=== PATIENT | female | born 1950 | race Caucasian/White ===

== ENCOUNTER → 2016-11-01 | Outpatient (CLI) | payer BC ==
[~2016-11-01] MED LIST: ASCO500T16 PO; CHOL100010 PO; LOVA10TA3 PO; LVQ750 PO; MULT-506 PO; TSSP PO; VITACAP37 PO
--- NOTE | 2016-11-01 12:36 | MAMMOGRAPHY REPORT ---
BILATERAL DIGITAL SCREENING MAMMOGRAM WITH CAD: 11/01/2016 CLINICAL HISTORY: Routine screening. Patient has no complaints. TECHNIQUE: Current study was also evaluated with a Computer Aided Detection (CAD) system. Bilatera l CC and MLO views were obtained. COMPARISON: Comparison is made to exams dated: 10/19/2015 mammogram, 10/18/2014 mammogram, 04/20/2014 mammogram, 10/19/2013 mammogram, 10/12/2013 mammogram, and 10/09/2012 mammogram - [facility]. BREAST COMPOSITION: The tissue of both breasts is almost entirely fatty. FINDINGS: No suspicious masses, calcifications, or areas of architectural distortion are noted in e ither breast. There has been no significant interval change compared to prior exams. IMPRESSION: ACR BI-RADS CATEGORY 1: NEGATIVE There is no mammographic evidence of malignancy. A 1 year screening mammogram is recommended. The p atient will receive written notification of the results. Approximately 10% of breast cancers are not detected with mammography. A negative mammographic repor t should not delay biopsy if a clinically suggestive mass is present. Adriana Gaytan M.D. /:11/01/2016 12:27:19 Clinical Staff Educator: Christina Campos, [facility] letter sent: Normal 1/2 BI-RADS Code: ACR BI-RADS Category 1: Negative
--- NOTE | 2016-11-08 14:17 | CODING QUERY MEDICAL NECESSITY ---
SUPPORTING DIAGNOSIS NEEDED A supporting diagnosis is required for the test/procedure performed on this patient in order for us to be reimbursed by the patient's insurance. Please provide a supporting diagnosis for the following test/procedure listed below next to the test name along with your signature. *If there is no additional diagnosis for this patient that would support the following test/procedure please document that below next to the test/procedure. Test(s)/Procedure(s) that require a supporting diagnosis: * DXA BONE DENSITY DIAGNOSIS: * DOS: 11/01/16 Provider Signature: Date: Thank you [facility] Once completed, please kindly fax back to [phone] For questions please call [phone]
== END | disposition home or self-care (01) ==
LOC: C.MAMM 07:44
PROVIDERS: ATTEND Family Medicine
DX: Z12.31 Encounter for screening mammogram for malignant neoplasm of breast (principal); Z12.39 Encounter for other screening for malignant neoplasm of breast; E28.39 Other primary ovarian failure

== ENCOUNTER → 2017-11-04 | Outpatient (CLI) | payer BC ==
--- NOTE | 2017-11-05 07:51 | MAMMOGRAPHY REPORT ---
BILATERAL DIGITAL SCREENING MAMMOGRAM TOMOSYNTHESIS WITH CAD: 11/04/2017 CLINICAL HISTORY: Routine screening. Patient has no complaints. TECHNIQUE: Breast tomosynthesis in addition to standard 2D mammography was performed. Current study was also evaluated with a Computer Aided Detection (CAD) system. COMPARISON: Comparison is made to exams dated: 11/01/2016 mammogram, 10/19/2015 mammogram, 10/18/2014 mammogram, 04/20/2014 mammogram, 10/19/2013 ultrasound, and 10/12/2013 mammogram - [facility]. BREAST COMPOSITION: The tissue of both breasts is almost entirely fatty. FINDINGS: There is stable asymmetry in the inferior left breast and stable nodularity in the lateral right breast. No suspicious mass, architectural distortion or cluster of microcalcifications is seen . IMPRESSION: ACR BI-RADS CATEGORY 1: NEGATIVE There is no mammographic evidence of malignancy. A 1 year screening mammogram is recommended. The pa tient will receive written notification of the results. Approximately 10% of breast cancers are not detected with mammography. A negative mammographic report should not delay biopsy if a clinically suggestive mass is present. Ryanne Salgado M.D. ay/:11/04/2017 16:02:46 Chemistry Instructor: Ceci COKER(Adrienne)(Herbert), [facility] letter sent: Normal 1/2 BI-RADS Code: ACR BI-RADS Category 1: Negative
== END | disposition home or self-care (01) ==
LOC: C.MAMM 07:10
PROVIDERS: ATTEND Family Medicine
DX: Z12.31 Encounter for screening mammogram for malignant neoplasm of breast (principal)

== ENCOUNTER 2024-02-13 06:20 | Inpatient (IN) ==
[2024-02-13] MEDS: dilTIAZem HCl 5 MG/ML 5 ML VIAL IV STA (06:53)
--- NOTE | 2024-02-13 07:11 | XRay Report ---
XR chest 1V portable HISTORY: 73 years-old Female Chest pain, nonspecific COMPARISON: 11/06/2022 TECHNIQUE: AP view of the chest FINDINGS: Cardiomediastinal and hilar silhouettes are within normal limits. No pneumothorax, pleural effusion o r pulmonary edema. Subsegmental left basilar densities. The bones appear grossly intact. IMPRESSION: 1. Cardiomegaly without pulmonary edema. 2. Subsegmental left basilar opacities favor atelectasis. A mild nonspecific pneumonitis considered l ess likely. ACT 112: Negative or not required by law. The above report was generated using voice recognition software. It may contain grammatical, syntax o r spelling errors. Electronically signed by: Dakota June M.D. 02/13/2024 7:10 AM
[2024-02-13 07:21] LABS: Basophils # (auto) 0.02 K/uL (0.00-0.20); Basophils % (auto) 0.2 %; Eosinophils # (auto) 0.06 K/uL (0.00-0.50); Eosinophils % (auto) 0.7 %; Hematocrit (blood only) 45.4 % (37.0-47.0); Hemoglobin 14.9 g/dl (12.0-16.0); Immature Granulocytes # (auto) 0.04 K/uL (0.01-0.20); Immature Granulocytes % (auto) 0.5 %; Lymphocytes # (auto) 1.26 K/uL (1.20-3.40); Mean Corpuscular Hemoglobin 28.4 pg (25.0-34.0); Mean Corpuscular Hgb Conc 32.8 g/dL (32.0-36.0); Mean Corpuscular Volume 86.5 fL (80.0-100.0); Mean Platelet Volume 9.4 fL (9.4-12.4); Monocytes # (auto) 0.84 K/uL (0.11-0.59); Neutrophils # (auto) 6.16 K/uL (1.40-6.50); Neutrophils % (auto) 73.6 %; Platelet Count 242 K/uL (130-400); RDW Coefficient of Variation 13.3 % (11.5-14.5); RDW Standard Deviation 41.3 fL (36.4-46.3); Red Blood Count 5.25 M/uL (4.20-5.40); White Blood Count 8.38 K/ul (4.8-10.8)
[2024-02-13 07:23] LABS: Albumin Globulin Ratio 1.1 (0.9-2); Albumin Level 4.6 gm/dl (3.4-5.0); BUN Creatinine Ratio 15.5 (10-20); Calcium 10.3 mg/dl (8.6-10.3); Creatinine Clr Calc Pharmacy 57.9 ml/min; Est GFR (African American) 67.6 ml/min; Est GFR (Non-African American) 58.3 ml/min; Globulin 4.1 gm/dl (2.5-4.0); Magnesium 2.2 mg/dl (1.7-2.4); Potassium 3.9 mmol/L (3.5-5.1); Total Protein 8.7 gm/dl (6.0-8.3)
[2024-02-13] MEDS: dilTIAZem HCL 125 MG in DEXTROSE 5% 100 ML IV SCH (07:23)
[2024-02-13 07:29] LABS: Troponin I High Sensitivity 5.5 pg/ml (0-14)
--- NOTE | 2024-02-13 07:29 | Emergency Department Note ---
Impression & Plan Atrial fibrillation with rapid ventricular response, Chest pain ED Provider Note NAME: ALEJANDRO BROTHERS AGE: 73 SEX: Female INFORMANT: Patient ED PROVIDER(S): Anup Robles MD CHIEF COMPLAINT: Chest pain PLAN: Disposition: Admitted Outpatient prescription management: none Referral: None MEDICAL DECISION MAKING: Patient presented because of chest pain. A workup was initiated. ECG was performed and showed atrial fibrillation with rapid ventricular response. Patient was placed on monitor. Patient had multiple IVs established. Blood work was obtained. CBC and chemistry panels were unremarkable. Patient's chest x-ray did not show any acute findings. Radiology questioned atelectasis in the left base. Patient has no cough or flulike symptoms. Patient was given a Cardizem bolus, normal saline bolus and started on a Cardizem drip. Rate control was achieved. Care/management discussed with: senior relationship manager Level of care consideration(s): After review of the information above and other included data, I feel the patient requires escalation of care to admission. Triage Nursing notes: reviewed and agree them. Vital Signs: reviewed and remarkable for tachycardia Additional History obtained from: none Chronic Medical/Social Conditions affecting care: Hyperlipidemia Prior/ Outside/ External records reviewed: none Differential Diagnosis: Cardiac ischemia, dysrhythmia, aortic dissection, pulmonary embolism, pneumothorax, pneumonia, pericarditis, myocarditis, esophageal rupture, GERD, cholecystitis, pancreatitis, musculoskeletal, as well as other pathologies. Diagnostics, independently interpreted by me: ECG: Twelve-lead ECG reveals atrial fibrillation with rapid ventricular response at [address] elevation or depression. Nonspecific ST when compared to 06 November 2022 the A-fib is new. Cardiac Monitoring: Cardiac monitoring ordered by me: The patient was placed on continuous cardiac monitoring and observed. It revealed atrial fibrillation with rapid ventricular response at 141 bpm. Medical decision rules: none Imaging studies: Chest x-ray. Findings: A chest x-ray was performed and revealed no pneumothorax, effusion, infiltrate, pulmonary edema, free air under the diaphragm, or wide mediastinum. Atelectasis left base HPI: 73 year old Female arrives for evaluation of chest pain. This started last night and is persisting. Pain radiates down the left arm and into the jaws bilaterally. The patient also notes the following associated symptoms, some shortness of breath and pain with deep breathing.. The patient has taken no medication for relieving factors. Current pain is rated as 8/10. Pt denies LOC, headache, fevers, chills, diaphoresis, visual changes, nausea, vomiting, abdominal pain, back pain, melena, hematochezia, urinary symptoms, numbness, weakness, lymphadenopathy, rash, or other complaints. . PAST MEDICAL HISTORY: See Below, hyperlipidemia PAST SURGICAL HISTORY: See Below, SOCIAL HISTORY: See Below, HOME MEDICATIONS: See Below ALLERGIES: See Below VITALS: See Below PHYSICAL EXAMINATION: GENERAL: Awake, alert, w uncomfortable ell-appearing, in no distress HENT: Normocephalic, atraumatic. Oropharynx unremarkable. EYES: Normal conjunctiva. Sclera non-icteric. NECK: Inspection normal. Non-tender. Supple. No nuchal rigidity. FROM. No masses. RESPIRATORY: Clear to auscultation. No wheezes. No rales. Normal respiratory effort. CARDIAC: Tachycardic rate. Irregular rhythm. No murmurs. No rubs. Extremities warm and well perfused. Pulses equal. No JVD. GI: Soft, non-distended. No tenderness to palpation. No rebound or guarding. No masses. RECTAL: Deferred. MUSCULOSKELETAL: Atraumatic. Chest examination reveals no tenderness. The back is symmetrical on inspection without obvious abnormality. There is no CVA tenderness to palpation. No joint edema. LOWER EXTREMITIES: Calves are equal size bilaterally and non-tender. No edema. No discoloration. NEURO: Normal sensorium. No sensory or motor deficits noted. SKIN: No rash or jaundice noted. PROCEDURES: none CRITICAL CARE: I have personally spent 35 minutes of critical care time in the direct management of this patient. This includes bedside care, interpretation of diagnostic studies, and testing, discussion with consultants, patient, and family members, and other required patient management activities. These minutes are in excess of all separately billable procedures. 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 Beliefs That Will Affect Care: None Current Living Situation: Spouse Other Information That Helps Us Care for You: No Feels Safe at Home: Yes Safety Concerns: Feels Safe At This Time Assistive Devices: Glasses Allergies Allergies Allergy/AdvReac Type Severity Reaction Status Date / Time aspirin Allergy Intermediate Hives Verified 11/06/22 17:00 bee venom protein (honey bee) Allergy Intermediate Hives Verified 11/06/22 17:00 orange Allergy Intermediate Hives Verified 11/06/22 17:00 Egg Derived AdvReac Intermediate NAUSEA/GAS/ Verified 11/06/22 17:00 BLOATING Home Meds Home Medications Medication Instructions Recorded Confirmed ascorbic acid (vitamin C) 500 mg 500 mg PO HS 11/06/22 02/13/24 chewable tablet (Vitamin C) atorvastatin 10 mg tablet 10 mg PO HS 11/06/22 02/13/24 calcium carbonate (Calcium 600) 600 mg PO HS 11/06/22 02/13/24 cholecalciferol (vitamin D3) 25 0 mcg PO HS 11/06/22 02/13/24 mcg (1,000 unit) capsule (Vitamin D3) docusate sodium 100 mg capsule 100 mg PO HS 11/06/22 02/13/24 (Stool Softener) multivitamin 1 tab PO HS 11/06/22 02/13/24 Results & Data (ED) Vital Signs Vital Signs - 24 hr 02/13/24 06:23 02/13/24 06:33 02/13/24 06:35 Temperature 36.3 C L Temperature Source Temporal Artery Scan Pulse Rate 121 H 122 H 130 H Pulse Rate [Right Finger] Pulse Rate from SpO2 Sensor 108 H Respiratory Rate 18 26 H Respiratory Effort / Characteristics Non-Labored Spontaneous Respiratory Depth Normal Blood Pressure 133/82 137/97 Blood Pressure [Right Arm] Blood Pressure Mean 99 110 Blood Pressure Mean [Right Arm] Blood Pressure Position Sitting Blood Pressure Position [Right Arm] Pulse Oximetry 98 95 Oxygen Delivery Method Room Air Room Air Sepsis Recent Fever Within 48 Hours No Sepsis New/Unexplained Change in Mental Status N/A Sepsis Action Taken by Nursing No Action Required 02/13/24 06:37 02/13/24 06:37 02/13/24 06:38 Temperature Temperature Source Pulse Rate Pulse Rate [Right Finger] 120 H Pulse Rate from SpO2 Sensor Respiratory Rate 32 H Respiratory Effort / Characteristics Respiratory Depth Blood Pressure Blood Pressure [Right Arm] 137/97 Blood Pressure Mean Blood Pressure Mean [Right Arm] 110 Blood Pressure Position Blood Pressure Position [Right Arm] Pulse Oximetry 94 94 Oxygen Delivery Method Room Air Room Air Room Air Sepsis Recent Fever Within 48 Hours Sepsis New/Unexplained Change in Mental Status Sepsis Action Taken by Nursing 02/13/24 06:40 02/13/24 06:50 02/13/24 07:22 Temperature Temperature Source Pulse Rate 128 H 118 H Pulse Rate [Right Finger] 114 H Pulse Rate from SpO2 Sensor 109 H 95 H Respiratory Rate 21 27 H 20 Respiratory Effort / Characteristics Non-Labored Respiratory Depth Normal Blood Pressure Blood Pressure [Right Arm] 104/77 Blood Pressure Mean Blood Pressure Mean [Right Arm] 86 Blood Pressure Position Blood Pressure Position [Right Arm] Pulse Oximetry 98 96 95 Oxygen Delivery Method Room Air Room Air Room Air Sepsis Recent Fever Within 48 Hours Sepsis New/Unexplained Change in Mental Status Sepsis Action Taken by Nursing 02/13/24 07:55 02/13/24 07:55 02/13/24 08:23 Temperature Temperature Source Pulse Rate 91 H Pulse Rate [Right Finger] Pulse Rate from SpO2 Sensor 103 H Respiratory Rate 16 Respiratory Effort / Characteristics Respiratory Depth Blood Pressure 101/80 127/85 Blood Pressure [Right Arm] Blood Pressure Mean 85 91 Blood Pressure Mean [Right Arm] Blood Pressure Position Blood Pressure Position [Right Arm] Pulse Oximetry 96 Oxygen Delivery Method Sepsis Recent Fever Within 48 Hours Sepsis New/Unexplained Change in Mental Status Sepsis Action Taken by Nursing 02/13/24 08:23 02/13/24 08:30 02/13/24 08:40 Temperature Temperature Source Pulse Rate 96 H 94 H 98 H Pulse Rate [Right Finger] Pulse Rate from SpO2 Sensor 111 H 94 H 102 H Respiratory Rate 25 H 25 H 18 Respiratory Effort / Characteristics Respiratory Depth Blood Pressure Blood Pressure [Right Arm] Blood Pressure Mean Blood Pressure Mean [Right Arm] Blood Pressure Position Blood Pressure Position [Right Arm] Pulse Oximetry 97 97 97 Oxygen Delivery Method Sepsis Recent Fever Within 48 Hours Sepsis New/Unexplained Change in Mental Status Sepsis Action Taken by Nursing 02/13/24 08:40 02/13/24 08:45 02/13/24 08:45 Temperature Temperature Source Pulse Rate 94 H Pulse Rate [Right Finger] Pulse Rate from SpO2 Sensor 103 H Respiratory Rate 20 Respiratory Effort / Characteristics Respiratory Depth Blood Pressure 119/88 121/98 Blood Pressure [Right Arm] Blood Pressure Mean 92 103 Blood Pressure Mean [Right Arm] Blood Pressure Position Blood Pressure Position [Right Arm] Pulse Oximetry 97 Oxygen Delivery Method Sepsis Recent Fever Within 48 Hours Sepsis New/Unexplained Change in Mental Status Sepsis Action Taken by Nursing 02/13/24 08:50 02/13/24 08:50 02/13/24 08:55 Temperature Temperature Source Pulse Rate 119 H Pulse Rate [Right Finger] Pulse Rate from SpO2 Sensor 97 H Respiratory Rate 19 Respiratory Effort / Characteristics Respiratory Depth Blood Pressure 122/82 119/77 Blood Pressure [Right Arm] Blood Pressure Mean 95 81 Blood Pressure Mean [Right Arm] Blood Pressure Position Blood Pressure Position [Right Arm] Pulse Oximetry 82 L Oxygen Delivery Method Sepsis Recent Fever Within 48 Hours Sepsis New/Unexplained Change in Mental Status Sepsis Action Taken by Nursing 02/13/24 08:55 02/13/24 09:00 02/13/24 09:00 Temperature Temperature Source Pulse Rate 90 Pulse Rate [Right Finger] 101 H Pulse Rate from SpO2 Sensor 97 H Respiratory Rate 20 18 Respiratory Effort / Characteristics Non-Labored Spontaneous Respiratory Depth Normal Blood Pressure 117/83 Blood Pressure [Right Arm] 118/92 Blood Pressure Mean 89 Blood Pressure Mean [Right Arm] 100 Blood Pressure Position Blood Pressure Position [Right Arm] Semi-fowlers Pulse Oximetry 95 97 Oxygen Delivery Method Room Air Sepsis Recent Fever Within 48 Hours Sepsis New/Unexplained Change in Mental Status Sepsis Action Taken by Nursing 02/13/24 09:00 02/13/24 09:06 02/13/24 09:06 Temperature Temperature Source Pulse Rate 93 H 103 H Pulse Rate [Right Finger] Pulse Rate from SpO2 Sensor 93 H 117 H Respiratory Rate 18 18 Respiratory Effort / Characteristics Respiratory Depth Blood Pressure 111/94 Blood Pressure [Right Arm] Blood Pressure Mean 106 Blood Pressure Mean [Right Arm] Blood Pressure Position Blood Pressure Position [Right Arm] Pulse Oximetry 95 97 Oxygen Delivery Method Sepsis Recent Fever Within 48 Hours Sepsis New/Unexplained Change in Mental Status Sepsis Action Taken by Nursing 02/13/24 09:10 02/13/24 09:10 02/13/24 09:15 Temperature Temperature Source Pulse Rate 99 H Pulse Rate [Right Finger] Pulse Rate from SpO2 Sensor 103 H Respiratory Rate 23 Respiratory Effort / Characteristics Respiratory Depth Blood Pressure 118/92 116/88 Blood Pressure [Right Arm] Blood Pressure Mean 95 92 Blood Pressure Mean [Right Arm] Blood Pressure Position Blood Pressure Position [Right Arm] Pulse Oximetry 94 Oxygen Delivery Method Sepsis Recent Fever Within 48 Hours Sepsis New/Unexplained Change in Mental Status Sepsis Action Taken by Nursing 02/13/24 09:15 02/13/24 09:20 02/13/24 09:20 Temperature Temperature Source Pulse Rate 109 H 102 H Pulse Rate [Right Finger] Pulse Rate from SpO2 Sensor 98 H 96 H Respiratory Rate 17 20 Respiratory Effort / Characteristics Respiratory Depth Blood Pressure 104/77 Blood Pressure [Right Arm] Blood Pressure Mean 87 Blood Pressure Mean [Right Arm] Blood Pressure Position Blood Pressure Position [Right Arm] Pulse Oximetry 94 94 Oxygen Delivery Method Sepsis Recent Fever Within 48 Hours Sepsis New/Unexplained Change in Mental Status Sepsis Action Taken by Nursing 02/13/24 09:25 02/13/24 09:25 02/13/24 09:30 Temperature Temperature Source Pulse Rate 94 H 101 H Pulse Rate [Right Finger] Pulse Rate from SpO2 Sensor 99 H 104 H Respiratory Rate 22 22 Respiratory Effort / Characteristics Respiratory Depth Blood Pressure 116/74 Blood Pressure [Right Arm] Blood Pressure Mean 90 Blood Pressure Mean [Right Arm] Blood Pressure Position Blood Pressure Position [Right Arm] Pulse Oximetry 96 95 Oxygen Delivery Method Sepsis Recent Fever Within 48 Hours Sepsis New/Unexplained Change in Mental Status Sepsis Action Taken by Nursing 02/13/24 09:30 02/13/24 09:35 02/13/24 09:35 Temperature Temperature Source Pulse Rate 82 Pulse Rate [Right Finger] Pulse Rate from SpO2 Sensor 86 Respiratory Rate 21 Respiratory Effort / Characteristics Respiratory Depth Blood Pressure 110/80 112/80 Blood Pressure [Right Arm] Blood Pressure Mean 85 81 Blood Pressure Mean [Right Arm] Blood Pressure Position Blood Pressure Position [Right Arm] Pulse Oximetry 94 Oxygen Delivery Method Sepsis Recent Fever Within 48 Hours Sepsis New/Unexplained Change in Mental Status Sepsis Action Taken by Nursing 02/13/24 09:40 02/13/24 09:40 02/13/24 09:45 Temperature Temperature Source Pulse Rate 114 H 95 H Pulse Rate [Right Finger] Pulse Rate from SpO2 Sensor 115 H 86 Respiratory Rate 21 18 Respiratory Effort / Characteristics Respiratory Depth Blood Pressure 102/83 Blood Pressure [Right Arm] Blood Pressure Mean 88 Blood Pressure Mean [Right Arm] Blood Pressure Position Blood Pressure Position [Right Arm] Pulse Oximetry 94 94 Oxygen Delivery Method Sepsis Recent Fever Within 48 Hours Sepsis New/Unexplained Change in Mental Status Sepsis Action Taken by Nursing 02/13/24 09:45 02/13/24 09:50 02/13/24 09:50 Temperature Temperature Source Pulse Rate 129 H Pulse Rate [Right Finger] Pulse Rate from SpO2 Sensor 120 H Respiratory Rate 18 Respiratory Effort / Characteristics Respiratory Depth Blood Pressure 116/78 141/104 H Blood Pressure [Right Arm] Blood Pressure Mean 82 126 Blood Pressure Mean [Right Arm] Blood Pressure Position Blood Pressure Position [Right Arm] Pulse Oximetry 96 Oxygen Delivery Method Sepsis Recent Fever Within 48 Hours Sepsis New/Unexplained Change in Mental Status Sepsis Action Taken by Nursing Laboratory Data 02/13/24 06:40 02/13/24 06:40 Lab Results 02/13/24 Range/Units 06:40 WBC 8.38 (4.8-10.8) K/ul RBC 5.25 (4.20-5.40) M/uL Hgb 14.9 (12.0-16.0) g/dl Hct 45.4 (37.0-47.0) % MCV 86.5 (80.0-100.0) fL MCH 28.4 (25.0-34.0) pg MCHC 32.8 (32.0-36.0) g/dL RDW Std Deviation 41.3 (36.4-46.3) fL RDW Coeff of Radha 13.3 (11.5-14.5) % Plt Count 242 (130-400) K/uL MPV 9.4 (9.4-12.4) fL Immature Gran % (Auto) 0.5 % Neut % (Auto) 73.6 % Lymph % (Auto) 15.0 % [place] % (Auto) 10.0 % Eos % (Auto) 0.7 % Baso % (Auto) 0.2 % Neut # (Auto) 6.16 (1.40-6.50) K/uL Lymph # (Auto) 1.26 (1.20-3.40) K/uL [place] # (Auto) 0.84 H (0.11-0.59) K/uL Eos # (Auto) 0.06 (0.00-0.50) K/uL Baso # (Auto) 0.02 (0.00-0.20) K/uL Immature Gran # (Auto) 0.04 (0.01-0.20) K/uL PT 10.2 (9.0-12.0) Seconds INR 0.9 (0.9-1.1) APTT 28 (21-31) Seconds PTT Ratio 1.0 D-Dimer 780 H* (0-500) ug/L FEU Sodium 139 (136-145) mmol/L Potassium 3.9 (3.5-5.1) mmol/L Chloride 105 (98-107) mmol/L Carbon Dioxide 27 (21-32) mmol/L Anion Gap 7 (3-11) BUN 15 (6-23) mg/dl Creatinine 0.97 (0.6-1.2) mg/dl Est Cr Clr Drug Dosing 57.9 ml/min Est GFR ( Amer) 67.6 ml/min Est GFR (Non-Af Amer) 58.3 ml/min BUN/Creatinine Ratio 15.5 (10-20) Glucose 122 H (70-99(Fasting)) mg/dl Calcium 10.3 (8.6-10.3) mg/dl Magnesium 2.2 (1.7-2.4) mg/dl Total Bilirubin 1.0 (0.2-1.0) mg/dl AST 19 (13-39) U/L ALT 15 (7-52) U/L Alkaline Phosphatase 77 (34-104) U/L Troponin I High Sens 5.5 (0-14) pg/ml Total Protein 8.7 H (6.0-8.3) gm/dl Albumin 4.6 (3.4-5.0) gm/dl Globulin 4.1 H (2.5-4.0) gm/dl Albumin/Globulin Ratio 1.1 (0.9-2) Lipase 19 (11-82) U/L TSH 1.482 (0.300-4.500) uIu/ml Administered Medications Apixaban (Apixaban 5 Mg Tablet) 5 mg PO BID [facility] Stop: 03/14/24 10:14 Last Admin: 02/13/24 11:51 Dose: 5 mg Documented By: JACOB Diltiazem HCl 125 mg/ Dextrose 125 mls @ 2.5 mls/hr IV .Q24H [facility]; Protocol Stop: 03/14/24 06:59 Last Titration: 02/13/24 13:03 Dose: 0 mg/hr, 0 mls/hr Documented By: NINFA Co-signed By: AJAY Admin: 02/13/24 07:23 Dose: 2.5 mg/hr, 2.5 mls/hr Documented By: JACOB Co-signed By: ZOIE Metoprolol Tartrate (Metoprolol Tartrate 25 Mg Tab) 25 mg PO BID [facility] Stop: 03/14/24 10:29 Last Admin: 02/13/24 11:50 Dose: 25 mg Documented By: JACOB Discontinued Medications Diltiazem HCl (Diltiazem Hcl 5 Mg/Ml 5 Ml Vial) 10 mg IV NOW STA Stop: 02/13/24 06:49 Last Admin: 02/13/24 06:53 Dose: 10 mg Documented By: Co-signed By: KG Sodium Chloride (Nss) 500 mls @ 999 mls/hr IV .Q31M ONE Stop: 02/13/24 07:44 Last Infusion: 02/13/24 09:10 Dose: Infused Documented By: Admin: 02/13/24 07:33 Dose: 999 mls/hr Documented By: JACOB Ioversol (Optiray 320 125ml) 112 ml IV ONCE ONE Stop: 02/13/24 08:16 Last Admin: 02/13/24 08:16 Dose: 112 ml Documented By: WEST Imaging Data Radiologist's Impression: Chest X-Ray 02/13/24 06:31 XR chest 1V portable HISTORY: 73 years-old Female Chest pain, nonspecific COMPARISON: 11/06/2022 TECHNIQUE: AP view of the chest FINDINGS: Cardiomediastinal and hilar silhouettes are within normal limits. No pneumothorax, pleural effusion or pulmonary edema. Subsegmental left basilar densities. The bones appear grossly intact. IMPRESSION: 1. Cardiomegaly without pulmonary edema. 2. Subsegmental left basilar opacities favor atelectasis. A mild nonspecific pneumonitis considered less likely. ACT 112: Negative or not required by law. The above report was generated using voice recognition software. It may contain grammatical, syntax or spelling errors. Electronically signed by: Dakota June M.D. 02/13/2024 7:10 AM Chest CTA 02/13/24 07:45 CT angio chest PE protocol CT DOSE: 778.68 mGy.cm HISTORY: 73 years-old Female with chest pain, SOB +dimer, eval PE. Acute chest pain with shortness of breath TECHNIQUE: Multiple CTA images of the chest were obtained after the intravenous administration of 112 ml Optiray. Coronal and sagittal MIPS were obtained from the axial data set and were submitted for review. All measurements were obtained according to NASCET criteria. A dose lowering technique was utilized adhering to the principles of ALARA. COMPARISON: Chest radiograph of same day, chest CT 01/19/2014 FINDINGS: CTA: Moderate cardiomegaly. No pericardial effusion. Minimal coronary artery calcifications. Ectasia of the ascending thoracic aorta measures up to 3.9 cm. No aneurysm or dissection. Patency of the imaged great vessels. Main pulmonary artery measures up to 3.2 cm which may represent underlying pulmonary arterial hypertension. No pulmonary emboli identified. CT CHEST: Unremarkable thyroid. Mildly enlarged mediastinal and hilar lymph nodes measure up to 1.2 cm which are similar to prior and likely benign. No pneumothorax, pleural effusion or overt pulmonary edema. Dependent subsegmental bibasilar atelectasis. Intralobular septal thickening with reticular interstitial opacities of the lung bases. Mild bibasilar mucous plugging. There are a few scattered punctate calcified pulmonary granulomata. No suspicious pulmonary nodules or masses. A few scattered solid noncalcified pulmonary nodules measure up to approximately 3 mm. No acute upper abdominal abnormality. Unremarkable soft tissues. No acute fracture identified. IMPRESSION: 1. Cardiomegaly without pulmonary emboli identified. 2. Bibasilar opacities suggestive of atelectasis versus scarring. 3. No pleural effusion, overt pulmonary edema or airspace consolidation typical for pneumonia. ACT 112: Negative or not required by law. The above report was generated using voice recognition software. It may contain grammatical, syntax or spelling errors. Electronically signed by: Dakota June M.D. 02/13/2024 9:12 AM Discharge Plan Visit Data Chief Complaint: Chest Pain Stated Complaint: CHEST PAIN INTO LEFT ARM,SOB,HEADACHE ED Provider: Anup Robles Discharge Problem: Atrial fibrillation with rapid ventricular response, Chest pain Patient Disposition: Admitted As Inpatient Discharge Instructions Interventions: ED Discharge Assessment Last Done: 02/13/24 13:33
[2024-02-13] MEDS: SODIUM CHLORIDE 0.9% 500 ML IV ONE (07:33)
[2024-02-13 07:40] LABS: D Dimer 780 ug/L FEU (0-500)
[2024-02-13] MEDS: OPTIRAY 320 125ml IV ONE (08:16)
[2024-02-13 08:39] LABS: INR 0.9 (0.9-1.1); Partial Thromboplastin Time 28 Seconds (21-31); Prothrombin Time 10.2 Seconds (9.0-12.0)
--- NOTE | 2024-02-13 09:14 | CT Scan Report ---
CT angio chest PE protocol CT DOSE: 778.68 mGy.cm HISTORY: 73 years-old Female with chest pain, SOB +dimer, eval PE. Acute chest pain with shortness of breath TECHNIQUE: Multiple CTA images of the chest were obtained after the intravenous administration of 112 ml Optiray. Coronal and sagittal MIPS were obtained from the axial data set and were submitted for review. All measurements were obtained according to NASCET criteria. A dose lowering technique was u tilized adhering to the principles of ALARA. COMPARISON: Chest radiograph of same day, chest CT 01/19/2014 FINDINGS: CTA: Moderate cardiomegaly. No pericardial effusion. Minimal coronary artery calcifications. Ectasia of th e ascending thoracic aorta measures up to 3.9 cm. No aneurysm or dissection. Patency of the imaged gr eat vessels. Main pulmonary artery measures up to 3.2 cm which may represent underlying pulmonary art erial hypertension. No pulmonary emboli identified. CT CHEST: Unremarkable thyroid. Mildly enlarged mediastinal and hilar lymph nodes measure up to 1.2 cm which ar e similar to prior and likely benign. No pneumothorax, pleural effusion or overt pulmonary edema. Dep endent subsegmental bibasilar atelectasis. Intralobular septal thickening with reticular interstitial opacities of the lung bases. Mild bibasilar mucous plugging. There are a few scattered punctate calc ified pulmonary granulomata. No suspicious pulmonary nodules or masses. A few scattered solid noncalc ified pulmonary nodules measure up to approximately 3 mm. No acute upper abdominal abnormality. Unremarkable soft tissues. No acute fracture identified. IMPRESSION: 1. Cardiomegaly without pulmonary emboli identified. 2. Bibasilar opacities suggestive of atelectasis versus scarring. 3. No pleural effusion, overt pulmonary edema or airspace consolidation typical for pneumonia. ACT 112: Negative or not required by law. The above report was generated using voice recognition software. It may contain grammatical, syntax o r spelling errors. Electronically signed by: Dakota June M.D. 02/13/2024 9:12 AM
--- NOTE | 2024-02-13 10:21 | History & Physical Report ---
Date of Service February 13, 2024 Assessment & Plan (1) Atrial fibrillation with rapid ventricular response: Plan: new onset PM of 02/11 with chest pressure and chest pain radiating down the left arm. - trop neg, repeat confirms. - elevated ddimer - CTA: no PE, bibasilar opacities suggestive atelectasis versus scarring - Echo pending - TSH WNL - continue Cardizem drip until rates controlled - metoprolol tartrate 25mg BID - Eliquis 5mg BID - K 3.9, Mag 2.2 AM CBC and BMP (2) Hyperlipidemia: Plan: Continue atorvastatin 10mg AM Lipid panel Plan Dispo: admit to PCU Full Code DVT proh: started Eliquis History of Present Illness Primary Care Provider: Karolyn Williamson MD Ms. Murdock is a 73F with a PMH of hyperlipemia who presents to the ED with chest pain and SOB since 10pm last night. She took two tylenol that allowed her to sleep for alittle bit and woke up around 430 with worsening pain that radiated down to the arm that prompted her to come to the ER. Was in her usual state of health until last night. Does report family hx of afib but has never been told she had this before. Shoulder pain has improved, reports chest pain is still 5/10 with deep breathing, but otherwise no pain. Allergies Allergy/AdvReac Type Severity Reaction Status Date / Time aspirin Allergy Intermediate Hives Verified 11/06/22 17:00 bee venom protein (honey bee) Allergy Intermediate Hives Verified 11/06/22 17:00 orange Allergy Intermediate Hives Verified 11/06/22 17:00 Egg Derived AdvReac Intermediate NAUSEA/GAS/ Verified 11/06/22 17:00 BLOATING Home Medications Medication Instructions Recorded Confirmed Type ascorbic acid (vitamin C) 500 mg 500 mg PO HS 11/06/22 02/13/24 History chewable tablet (Vitamin C) atorvastatin 10 mg tablet 10 mg PO HS 11/06/22 02/13/24 History calcium carbonate (Calcium 600) 600 mg PO HS 11/06/22 02/13/24 History cholecalciferol (vitamin D3) 25 0 mcg PO HS 11/06/22 02/13/24 History mcg (1,000 unit) capsule (Vitamin D3) docusate sodium 100 mg capsule 100 mg PO HS 11/06/22 02/13/24 History (Stool Softener) multivitamin 1 tab PO HS 11/06/22 02/13/24 History Past Med/Surg History Social History Smoking Status: Never smoker Hx Alcohol Use: No Hx Substance Use: No Divinity Teacher Required: No Beliefs That Will Affect Care: None Current Living Situation: Spouse Other Information That Helps Us Care for You: No Feels Safe at Home: Yes Safety Concerns: Feels Safe At This Time Assistive Devices: Glasses Review of Systems Review of Systems: All systems reviewed & are unremarkable except as noted in HPI & below Physical Exam Physical Exam: General: NAD, VS as above Resp: normal respiratory effort, lungs clear to auscultation CV: irregular, rates 100s, no murmur, Abd: normal bowel sounds, non tender, no hepatosplenomegaly Extremities: Moves all extremities, no edema Neuro: A&O x3, Skin: intact, no lesions noted Results & Data Results & Data Vital Signs (Past 12 Hours) Vital Signs Temp Pulse Pulse Resp BP BP Pulse Ox 02/13/24 09:00 101 H 18 118/92 97 02/13/24 07:22 114 H 20 104/77 95 02/13/24 06:50 118 H 27 H 96 02/13/24 06:40 128 H 21 98 02/13/24 06:38 120 H 32 H 137/97 94 02/13/24 06:37 02/13/24 06:37 94 02/13/24 06:35 130 H 26 H 137/97 95 02/13/24 06:33 122 H 02/13/24 06:23 36.3 C L 121 H 18 133/82 98 O2 Del Method 02/13/24 09:00 Room Air 02/13/24 07:22 Room Air 02/13/24 06:50 Room Air 02/13/24 06:40 Room Air 02/13/24 06:38 Room Air 02/13/24 06:37 Room Air 02/13/24 06:37 Room Air 02/13/24 06:35 Room Air 02/13/24 06:33 02/13/24 06:23 Room Air Laboratory Results CBC, chemistry, trop, ddimer reviewed Diagnostic Findings CXR and CTA reviewed Supervising Physician Co-Signing Physician Notes Patient seen and examined, chart reviewed, case discussed with Liliya Mcdonnell and I agree with the assessment and plan as above except as otherwise noted Labs and images reviewed Lynne is a 73-year-old female who presents with new A-fib RVR. She has never had A-fib before, but she reports she has multiple family members with A-fib without provoking causes. She denies a history of alcohol use, denies sleep apnea and feels rested in the morning, denies chest pain or exertional angina. She does not have any known thyroid issues, TSH is pending. After admission to the ER she feels improved on the Cardizem drip. She denies any history of heart failure. No leg swelling. CTA does not show evidence of PE. Will attempt to transition to metoprolol. 25mg BID tartrate given, downtitrate cardizem gtt as able and uptitrate mtp if needed. If inadequate rate control with cardizem wean --> +MTP 2.5mg IVP. Discussed afib ppx. At least moderate [id number]. Pt agreeable to afib stroke ppx with eliquis. repeat trop pending, if low suspicion for ACS/trop is not exponentially rising --> eliquis BID. If rising trop or recurrent chest will heparinize for now and target transition when stable. A time of assessment HR 90s-110. BP normal. irir. -mmrg CTAB. No pitting LE edema. Agree with assessment and management above PG Care Time/CCT Total # of Minutes Spent Total Time Spent with Patient: Total time spent is greater than 50% in coordination of care (as documented) at patient's floor/unit and/or counseling patient: Coding Level of Care Code 34246 INT INP/OBS CARE 3/75MIN Diagnoses Atrial fibrillation with rapid ventricular response I48.91 Hyperlipidemia E78.5
[2024-02-13 11:13] LABS: Thyroid Stimulating Hormone 1.482 uIu/ml (0.300-4.500)
[2024-02-13] MEDS: METOPROLOL TARTRATE 25 MG TAB PO SCH (11:50)
[2024-02-13] MEDS: APIXABAN 5 MG TABLET PO SCH (11:51)
[2024-02-13] MEDS ORDERED: POLYETHYLENE (MIRALAX) 17 GM PACK PO PRN (12:50)
[2024-02-13] MEDS ORDERED: ACETAMINOPHEN 325 MG TAB PO PRN (12:50)
--- NOTE | 2024-02-13 15:51 | Electrocardiogram Report ---
Test Reason : Blood Pressure : / mmHG Vent. Rate : 131 BPM Atrial Rate : 000 BPM P-R Int : 000 ms QRS Dur : 070 ms QT Int : 260 ms P-R-T Axes : 000 023 058 degrees QTc Int : 383 ms Atrial fibrillation with rapid ventricular response Abnormal ECG When compared with ECG of 06-NOV-2022 12:46, Atrial fibrillation has replaced Sinus rhythm Nonspecific T wave abnormality now evident in Lateral leads Confirmed by Neal Tolentino ([id number]) on 02/13/2024 3:51:08 PM Referred By: Confirmed By:Neal Tolentino
--- NOTE | 2024-02-13 16:47 | XCELERA ---
[id number]
[2024-02-13] MEDS: ATORVASTATIN 10 MG TAB PO SCH (20:36)
[2024-02-13] MEDS: DOCUSATE SODIUM 100 MG CAP PO SCH (20:36)
[2024-02-13] MEDS: STAT IV Infusion **Titration per Protocol STA (21:45)
[2024-02-14 07:05] LABS: Hematocrit (blood only) 38.4 % (37.0-47.0); Hemoglobin 12.7 g/dl (12.0-16.0); Mean Corpuscular Hemoglobin 28.9 pg (25.0-34.0); Mean Corpuscular Hgb Conc 33.1 g/dL (32.0-36.0); Mean Corpuscular Volume 87.5 fL (80.0-100.0); Mean Platelet Volume 9.1 fL (9.4-12.4); Platelet Count 211 K/uL (130-400); RDW Coefficient of Variation 13.7 % (11.5-14.5); RDW Standard Deviation 43.8 fL (36.4-46.3); Red Blood Count 4.39 M/uL (4.20-5.40); White Blood Count 6.22 K/ul (4.8-10.8)
[2024-02-14 07:07] LABS: Calcium 8.7 mg/dl (8.6-10.3); Magnesium 2.2 mg/dl (1.7-2.4); Potassium 4.1 mmol/L (3.5-5.1)
[2024-02-14 07:13] LABS: BUN Creatinine Ratio 20.8 (10-20); Chol HDL Ratio 2.1 (0-5); Creatinine Clr Calc Pharmacy 56.1 ml/min; Est GFR (African American) 64.4 ml/min; Est GFR (Non-African American) 55.6 ml/min
--- NOTE | 2024-02-14 15:40 | Cardiology Consultation ---
Date of Consultation February 14, 2024 Assessment & Plan (1) Atrial fibrillation with rapid ventricular response: (2) Mitral regurgitation: (3) Hyperlipidemia: (4) Chest pain: Plan Mrs. Murdock is a 73 year old female with a history of Mild Mitral Regurgitation, Mild Coronary Artery Calcifications, Hyperlipidemia, and Interstitial Lung Disease who presented on 02/13/24 with new onset Atrial Fibrillation with RVR. Patient describes new onset chest discomfort which radiated into her left shoulder and left arm beginning at 10:00 p.m. on 02/12/24. She tried to ignore this for a period of time, took some Tylenol and went back to bed. Her discomfort subsequently woke her up in the medical physics researcher hours so she was brought into the emergency room. Workup was initiated. EKG was performed and showed atrial fibrillation with rapid ventricular response. Patient was placed on monitor. Patient had IV access established. Blood work was obtained. CBC showed a normal hemoglobin of 12.7, hematocrit 30.4, normal white blood cell count, and platelet count of [id number]. Metabolic panel showed a normal serum potassium 4.1 mmol/L and her magnesium level was 2.2 mg/dL. Patient's chest x-ray did not show any acute findings. Radiology questioned atelectasis in the left base. Patient was given a Cardizem bolus and a normal saline bolus and started on a Cardizem drip. Rate control was achieved. She was normotensive on presentation and throughout the day on 02/13/24, last night during usual sleeping hours her BP were in the 90's systolically. Her current BP is 102/69. Her high sensitivity troponin I was 5.7 pg/mL and went to 5.9 pg/mL taking TSH normal at 1.482 uIu/mL. Patient is currently sitting in bedside chair and her is in the room with her. She denies any chest pain, heaviness, tightness, pressure, or discomfort. She has not had any further left arm or shoulder discomfort. Her breathing is at baseline. She did not have any sensation of palpitations, heart racing, or tachy palpitations at any time despite the presence of atrial fibrillation. She remains in A-Fib with a controlled V-rate in the 70's and 80's. Her Cardizem drip is currently on hold due to borderline BP readings. She is maintained on Lopressor 25 mg b.i.d. and Eliquis 5 mg b.i.d.. We had a long discussion regarding what Atril Fibrillation is, the natural history of atrial arrhythmias, and various management strategies. We discussed the importance of long-term anticoagulation. Her [id number] is 3 based on sex, age, and coronary artery calcifications. Despite her chest and arm discomfort with rapid A-Fib - I have reassured her that she passed her unofficial stress test as evidenced by her normal troponin I levels. Recommend the followin. Continue holding Cardizem due to low blood pressure readings. 2. 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 3. Increase Lopressor to 25 mg each morning and 37.5 mg each evening. 4. Continue Atorvastatin 10 mg, her lipid panel is favorable. Provided she remains rate controlled and is asymptomatic with her A-Fib -- she m ay be discharged home and follow-up with [facility] in coming weeks. History of Present Illness Reason for Consultation: -- New Onset Atrial Fibrillation with RVR. Requesting Physician: Favian Cosby MD Attending Physician: Neal Tolentino MD History of Present Illness Mrs. Murdock is a 73 year old female with a history of Mild Mitral Regurgitation, Hyperlipidemia, and Interstitial Lung Disease developed new onset chest discomfort which radiated into her left shoulder and left arm beginning at 10:00 p.m. on the night of 02/12/24. She tried to ignore this for a period of time, took some Tylenol and went back to bed. Her discomfort subsequently woke her up in the medical physics researcher hours so she was brought into the emergency room. Workup was initiated. EKG was performed and showed atrial fibrillation with rapid ventricular response. Patient was placed on monitor. Patient had IV access established. Blood work was obtained. CBC showed a normal hemoglobin of 12.7, hematocrit 30.4, normal white blood cell count, and platelet count of [id number]. Metabolic panel showed a normal serum potassium 4.1 mmol/L and her magnesium level was 2.2 mg/dL. Patient's chest x-ray did not show any acute findings. Radiology questioned atelectasis in the left base. Patient was given a Cardizem bolus and a normal saline bolus and started on a Cardizem drip. Rate control was achieved. She was normotensive on presentation and throughout the day on 02/13/24, last night during usual sleeping hours her BP were in the 90's systolically. Her current BP is 102/69. Her high sensitivity troponin I was 5.7 pg/mL and went to 5.9 pg/mL taking TSH normal at 1.482 uIu/mL. Patient is currently sitting in bedside chair and her is in the room with her. She denies any chest pain, heaviness, tightness, pressure, or discomfort. She has not had any further left arm or shoulder discomfort. Her breathing is at baseline. She did not have any sensation of palpitations, heart racing, or tachy palpitations at any time despite the presence of atrial fibrillation. She remains in A-Fib with a controlled V-rate in the 70's and 80's. Her Cardizem drip is currently on hold due to borderline BP readings. She is maintained on Lopressor 25 mg b.i.d. and Eliquis 5 mg b.i.d.. Allergies Allergy/AdvReac Type Severity Reaction Status Date / Time aspirin Allergy Intermediate Hives Verified 11/06/22 17:00 bee venom protein (honey bee) Allergy Intermediate Hives Verified 11/06/22 17:00 orange Allergy Intermediate Hives Verified 11/06/22 17:00 Egg Derived AdvReac Intermediate NAUSEA/GAS/ Verified 11/06/22 17:00 BLOATING Home Medications Medication Instructions Recorded Confirmed Type ascorbic acid (vitamin C) 500 mg 500 mg PO HS 11/06/22 02/13/24 History chewable tablet (Vitamin C) atorvastatin 10 mg tablet 10 mg PO HS 11/06/22 02/13/24 History calcium carbonate (Calcium 600) 600 mg PO HS 11/06/22 02/13/24 History cholecalciferol (vitamin D3) 25 0 mcg PO HS 11/06/22 02/13/24 History mcg (1,000 unit) capsule (Vitamin D3) docusate sodium 100 mg capsule 100 mg PO HS 11/06/22 02/13/24 History (Stool Softener) multivitamin 1 tab PO HS 11/06/22 02/13/24 History Patient History Social History Smoking Status: Never smoker Hx Alcohol Use: No Hx Substance Use: No Communication Ability: Effective Power Distributor Required: No Beliefs That Will Affect Care: None Current Living Situation: Spouse Other Information That Helps Us Care for You: No Feels Safe at Home: Yes Safety Concerns: Feels Safe At This Time Assistive Devices: None Review of Systems Review of Systems: -- No neurologic symptoms suggestive of stroke or mini stroke. -- She denies any prior cardiac history. -- No history of rheumatic fever, congen ital heart disease, [place], or CHF. -- 10 point ROS completed and is negativ e with the exception of what is mentioned in the HPI. Physical Exam Physical Exam: BP 102/69, pulse 74 irregular. GENERAL: Patient in no acute distress. HEENT: Head is atraumatic, normocephalic. EOM's intact. Facies symmetric. No perioral cyanosis. NECK: No JVD. JVP is not elevated. Carotid upstrokes are + 2 bilaterally without bruits. CHEST/LUNGS: Clear to auscultation throughout all lung burt. No wheezes, rales, or crackles. CVS: S1 and S2 are irregularly irregular with rates in the mid 70's. No murmurs, gallops, or rubs. PMI is nonpalpable. No lifts, heaves, or thrills. No abdominal aortic or renal bruits. ABDOMINAL EXAM: Bowel sounds are present. No masses, organomegaly, or tender ness. EXTREMITIES: No clubbing or cyanosis. No edema. Intact radial pulses bilaterally. NEUROLOGIC EXAM: Patient is awake, alert, and oriented. Pleasant and cooperative. Answers questions appropriately. Speech is clear. MAINTENANCE ADVISOR: -- Atrial fibrillation with controlled v entricular response rate. -- V-rates in the 70's and 80's. ECHOCARDIOGRAM 02/13/24: -- Normal LV size, wall motion, and syst olic function. -- LVEF 60% to 65%, normal wall motion. -- Mild MR. Results & Data Vital Signs (Past 12 Hours) Vital Signs Temp Pulse Pulse Resp BP Pulse Ox O2 Del Method 02/14/24 10:26 36.3 C L 95 H 18 102/69 97 Room Air 02/14/24 08:13 36.4 C L 63 18 96/67 L 92 Room Air 02/14/24 08:00 65 02/14/24 04:21 90/64 L Laboratory Results Laboratory Results - last 24 hr 02/14/24 06:38 WBC 6.22 RBC 4.39 Hgb 12.7 Hct 38.4 MCV 87.5 MCH 28.9 MCHC 33.1 RDW Std Deviation 43.8 RDW Coeff of Radha 13.7 Plt Count 211 MPV 9.1 L Sodium 139 Potassium 4.1 Chloride 108 H Carbon Dioxide 25 Anion Gap 6 BUN 21 Creatinine 1.01 Est Cr Clr Drug Dosing 56.1 Est GFR ( Amer) 64.4 Est GFR (Non-Af Amer) 55.6 BUN/Creatinine Ratio 20.8 H Glucose 98 Calcium 8.7 Magnesium 2.2 Triglycerides 93 Cholesterol 126 LDL Cholesterol, Calc 47 VLDL Cholesterol, Calc 19 HDL Cholesterol 60 Cholesterol/HDL Ratio 2.1 Diagnostic Findings CXR 02/13/24: Cardiomediastinal and hilar silhouettes are within normal limits. No pneumothorax, pleural effusion or pulmonary edema. Subsegmental left basilar densities. The bones appear grossly intact. IMPRESSION: 1. Cardiomegaly without pulmonary edema. 2. Subsegmental left basilar opacities favor atelectasis. A mild nonspecific pneumonitis considered less likely. CTA CHEST 02/13/24: FINDINGS: CTA: Moderate cardiomegaly. No pericardial effusion. Minimal coronary artery calcifications. Ectasia of the ascending thoracic aorta measures up to 3.9 cm. No aneurysm or dissection. Patency of the imaged great vessels. Main pulmonary artery measures up to 3.2 cm which may represent underlying pulmonary arterial hypertension. No pulmonary emboli identified. CT CHEST: Unremarkable thyroid. Mildly enlarged mediastinal and hilar lymph nodes measure up to 1.2 cm which are similar to prior and likely benign. No pneumothorax, pleural effusion or overt pulmonary edema. Dependent subsegmental bibasilar atelectasis. Intralobular septal thickening with reticular interstitial opacities of the lung bases. Mild bibasilar mucous plugging. There are a few scattered punctate calcified pulmonary granulomata. No suspicious pulmonary nodules or masses. A few scattered solid noncalcified pulmonary nodules measure up to approximately 3 mm. No acute upper abdominal abnormality. Unremarkable soft tissues. No acute fracture identified. IMPRESSION: 1. Cardiomegaly without pulmonary emboli identified. 2. Bibasilar opacities suggestive of atelectasis versus scarring. 3. No pleural effusion, overt pulmonary edema or airspace consolidation typical for pneumonia. Medications Administered Medication List Apixaban (Apixaban 5 Mg Tablet) 5 mg PO BID [facility] Stop: 03/14/24 10:14 Last Admin: 02/14/24 07:55 Dose: 5 mg Documented By: Admin: 02/13/24 20:36 Dose: 5 mg Documented By: Admin: 02/13/24 11:51 Dose: 5 mg Documented By: JACOB Atorvastatin Calcium (Atorvastatin 10 Mg Tab) 10 mg PO [facility] Stop: 03/14/24 20:59 Last Admin: 02/13/24 20:36 Dose: 10 mg Documented By: EHSAN Docusate Sodium (Docusate Sodium 100 Mg Cap) 100 mg PO [facility] Stop: 03/14/24 20:59 Last Admin: 02/13/24 20:36 Dose: 100 mg Documented By: EHSAN Diltiazem HCl 125 mg/ Dextrose 125 mls @ 0 mls/hr IV .Q0M [facility]; Protocol Stop: 03/14/24 06:59 Last Titration: 02/13/24 13:03 Dose: 0 mg/hr, 0 mls/hr Documented By: NINFA Co-signed By: AJAY Admin: 02/13/24 07:23 Dose: 2.5 mg/hr, 2.5 mls/hr Documented By: JACOB Co-signed By: ZOIE Metoprolol Tartrate (Metoprolol Tartrate 25 Mg Tab) 25 mg PO BID [facility] Stop: 03/14/24 10:29 Last Admin: 02/14/24 07:55 Dose: Not Given Documented By: Admin: 02/13/24 20:36 Dose: 25 mg Documented By: Admin: 02/13/24 11:50 Dose: 25 mg Documented By: JACOB Discontinued Medications Diltiazem HCl (Diltiazem Hcl 5 Mg/Ml 5 Ml Vial) 10 mg IV NOW STA Stop: 02/13/24 06:49 Last Admin: 02/13/24 06:53 Dose: 10 mg Documented By: JR Co-signed By: KG Sodium Chloride (Nss) 500 mls @ 999 mls/hr IV .Q31M ONE Stop: 02/13/24 07:44 Last Infusion: 02/13/24 09:10 Dose: Infused Documented By: Admin: 02/13/24 07:33 Dose: 999 mls/hr Documented By: JACOB Ioversol (Optiray 320 125ml) 112 ml IV ONCE ONE Stop: 02/13/24 08:16 Last Admin: 02/13/24 08:16 Dose: 112 ml Documented By: WEST Miscellaneous (Stat Iv Infusion Titration Per Protocol) 1 each N/A NOW STA Stop: 02/13/24 06:49 Last Admin: 02/13/24 21:45 Dose: Not Given Documented By: EHSAN PG Care Time/CCT Total # of Minutes Spent Total Time Spent with Patient: Total time spent is greater than 50% in coordination of care (as documented) at patient's floor/unit and/or counseling patient:44 [place] [address] INT INP/OBS CARE 2/55MIN Patient Type New Medical Decision Making Moderate Complexity Diagnoses Atrial fibrillation with rapid ventricular response I48.91 Nonrheumatic mitral valve regurgitation I34.0 Cardiac valve disease etiology: nonrheumatic Hyperlipidemia, unspecified hyperlipidemia type E78.5 Hyperlipidemia type: unspecified Chest pain, unspecified type R07.9 Chest pain type: unspecified Time Spent (min) 58 (2) Mitral regurgitation Cardiac valve disease etiology: nonrheumatic Qualified Code(s): I34.0 - Nonrheumatic mitral (valve) insufficiency (3) Hyperlipidemia Hyperlipidemia type: unspecified Qualified Code(s): E78.5 - Hyperlipidemia, unspecified (4) Chest pain Chest pain type: unspecified Qualified Code(s): R07.9 - Chest pain, unspecified
--- NOTE | 2024-02-14 18:28 | Hospitalist Progress Note ---
Date of Service February 14, 2024 Assessment & Plan (1) Atrial fibrillation with rapid ventricular response: Plan: new onset PM of 02/11 with chest pressure and chest pain radiating down the left arm. - trop neg, repeat confirms. - elevated ddimer - CTA: no PE, bibasilar opacities suggestive atelectasis versus scarring - Echo: no wall motion abnormalities, EF 60-65% - TSH WNL - Eliquis 5mg BID initiated - Consulted cardiology - with hypotension not allowing for AM doasge of metoprolol - Reccomend hold cardizem (discontinued) - continue artorvastatin and Eliquis - increase metoprolol to 25mg AM and 37.5 mg qPM - this was not done as patient was unable to receive her AM dose due to low BP. Discussed with Nagi Santos, will lower SBP threshold to 95. Will continue metoprolol at 25mg for this evening and reevaluate after monitoring BP and HR overnight. (2) Hyperlipidemia: Plan: Continue atorvastatin 10mg Lipid panel - LDL 47, HDL 60 Plan Dispo: continued inpatient stay, if BPs improve now that cardizem drip has been off for 24 hours, hope to dc tomorrow DVT proh: started Eliquis Admission and Anticipated Discharge Date Admission Date: February 13, 2024 Subjective Patient seen this morning. Overall feeling okay, no palpitations. Chest discomfort with deep breathing is improving. Denies dizziness at rest. Discussed with patient rhythm vs rate control and will consult cardiology for input. Review of Systems Review of Systems: All systems reviewed & are unremarkable except as noted in Subjective Physical Exam Physical Exam: General: NAD, VS as above Resp: normal respiratory effort, lungs clear to auscultation CV: irregular, no murmur, Extremities: Moves all extremities, no edema Neuro: A&O x3, Skin: intact, no lesions noted Results & Data Results & Data Vital Signs (Past 12 Hours) Vital Signs Temp Pulse Pulse Resp BP Pulse Ox O2 Del Method 02/14/24 15:47 65 02/14/24 15:42 36.5 C 91 H 18 93/66 L 97 Room Air 02/14/24 10:26 36.3 C L 95 H 18 102/69 97 Room Air 02/14/24 08:13 36.4 C L 63 18 96/67 L 92 Room Air 02/14/24 08:00 65 Laboratory Results CBC, chemistry and Mag reviewed PG Care Time/CCT Total # of Minutes Spent Total Time Spent with Patient: Total time spent is greater than 50% in coordination of care (as documented) at patient's floor/unit and/or counseling patient: Coding Level of Care Code 92992 SUB INP/OBS CARE 2/35MIN Diagnoses Atrial fibrillation with rapid ventricular response I48.91 Hyperlipidemia, unspecified hyperlipidemia type E78.5 Hyperlipidemia type: unspecified (2) Hyperlipidemia Hyperlipidemia type: unspecified Qualified Code(s): E78.5 - Hyperlipidemia, unspecified
[2024-02-15] MEDS ORDERED: AMIODARONE IV BOLUS & DRIP IV STA (09:57)
[2024-02-15] MEDS ORDERED: STAT IV Infusion **Titration per Protocol STA (09:57)
[2024-02-15] MEDS ORDERED: 0.2 MICRON FILTER SET 1 EACH IV STA (09:57)
--- NOTE | 2024-02-15 09:57 | Hospitalist Progress Note ---
Date of Service February 15, 2024 Assessment & Plan (1) Atrial fibrillation with rapid ventricular response: Plan: new onset PM of 02/11 with chest pressure and chest pain radiating down the left arm. - trop neg, repeat confirms. - elevated ddimer - CTA: no PE, bibasilar opacities suggestive atelectasis versus scarring - Echo: no wall motion abnormalities, EF 60-65% - TSH WNL - Eliquis 5mg BID initiated - Consulted cardiology - with hypotension not allowing for AM doasge of metoprolol - Reccomend hold cardizem (discontinued) - continue atorvastatin and Eliquis - increase metoprolol to 25mg AM and 37.5 mg qPM - this was not done as patient was unable to receive her AM dose due to low BP. Discussed with Nagi Santos, will lower SBP threshold to 95. Discussed case with Dr. Tolentino, plan to initiate amiodarone drip this morning to hopefully convert to sinus. He plans to see patient this afternoon. AM CBC, BMP and Mag (2) Hyperlipidemia: Plan: Continue atorvastatin 10mg Lipid panel - LDL 47, HDL 60 Plan Dispo: continued inpatient stay, monitoring HR, labs in AM DVT proh: started Eliquis Admission and Anticipated Discharge Date Admission Date: February 13, 2024 Subjective Patient seen resting in bed, overall feeling well. She has not noticed any changes as her heart rate has been changing from NSR to afib and possiblty flutter. Denies any palpitations or shortness of breath when her HR was 130-140s. She has been ambulating independently with out difficulty. No lightheadedness or dizziness. Tele - converted to NSR around 7pm last night, flipping between afib and NSR since over night, possible aflutter. Physical Exam Physical Exam: General: NAD, VS as above Resp: normal respiratory effort, lungs clear to auscultation CV: irregular, no murmur, Extremities: Moves all extremities, no edema Neuro: A&O x3, Skin: intact, no lesions noted Results & Data Results & Data Vital Signs (Past 12 Hours) Vital Signs Temp Pulse Pulse Resp BP Pulse Ox O2 Del Method 02/15/24 07:49 36.4 C L 55 L 18 104/69 97 Room Air 02/15/24 07:11 82 02/15/24 02:36 36.6 C 62 18 90/58 L 93 Room Air 02/15/24 00:08 36.4 C L 62 18 96/66 L 94 Room Air 02/14/24 23:44 68 PG Care Time/CCT Total # of Minutes Spent Total Time Spent with Patient: Total time spent is greater than 50% in coordination of care (as documented) at patient's floor/unit and/or counseling patient: Coding Level of Care Code 26790 SUB INP/OBS CARE 3/50MIN Diagnoses Atrial fibrillation with rapid ventricular response I48.91 Hyperlipidemia, unspecified hyperlipidemia type E78.5 Hyperlipidemia type: unspecified (2) Hyperlipidemia Hyperlipidemia type: unspecified Qualified Code(s): E78.5 - Hyperlipidemia, unspecified
[2024-02-15] MEDS: AMIODARONE / D5W 150 MG/100 ML BAG IV STA (10:26)
[2024-02-15] MEDS: AMIODARONE / D5W 360 MG/200 ML BAG IV ONE (10:43)
--- NOTE | 2024-02-15 11:54 | Electrocardiogram Report ---
Test Reason : Blood Pressure : / mmHG Vent. Rate : 084 BPM Atrial Rate : 084 BPM P-R Int : 172 ms QRS Dur : 072 ms QT Int : 366 ms P-R-T Axes : 050 036 049 degrees QTc Int : 432 ms Sinus rhythm with Premature atrial complexes Low voltage QRS Abnormal ECG When compared with ECG of 13-FEB-2024 06:31, Sinus rhythm has replaced Atrial fibrillation Vent. rate has decreased BY 47 BPM Nonspecific T wave abnormality no longer evident in Lateral leads Confirmed by Neal Tolentino ([id number]) on 02/15/2024 11:54:19 AM Referred By: REFERRED SELF Confirmed By:Neal Tolentino
--- NOTE | 2024-02-15 12:18 | Cardiology Progress Note ---
Date of Service February 15, 2024 Assessment & Plan (1) Atrial fibrillation with rapid ventricular response: Plan: -although occasional episodes of sinus rhythm, atrial fibrillation and continues to be rapid. -relative hypotension limits increasing metoprolol. -would initiate an amiodarone infusion to attain and maintain sinus rhythm. -may consider changing her from amiodarone to flecainide as an outpatient. -continue Eliquis. (2) Mitral regurgitation: Plan: -mild in degree on current echocardiogram. (3) Hyperlipidemia: Plan: -on atorvastatin 10 mg q.h.s. at home. (4) Chest pain: Plan: -do not feel that this represents coronary ischemia as troponins are normal despite a rapid ventricular response. Admission and Anticipated Discharge Date Admission Date: February 13, 2024 Subjective The patient is resting comfortably in bed without complaints of chest pain, dyspnea, or palpitations. Her is at the bedside. Physical Exam Physical Exam: In general this is a well-developed well-nourished white female in no acute distress. HEENT exam is negative. Neck is supple with full carotid upstrokes. There are no carotid bruits. Jugular venous pressure is flat at 90. There is no thyromegaly. Cardiovascular exam reveals a regular rhythm with a normal S1 and S2. No S3, S4, or murmurs are noted. Lungs are clear without rales, rhonchi, or wheezes. Abdomen is soft and nontender without bruits. Extremities reveal intact radial artery and posterior tibial pulses bilaterally. There is no peripheral edema. Results & Data Vital Signs (Past 12 Hours) Vital Signs Temp Pulse Pulse Resp BP Pulse Ox O2 Del Method 02/15/24 11:28 36.4 C L 64 18 97/67 L 97 Room Air 02/15/24 07:49 36.4 C L 55 L 18 104/69 97 Room Air 02/15/24 07:11 82 02/15/24 02:36 36.6 C 62 18 90/58 L 93 Room Air Diagnostic Findings The patient notes occasional brief episodes of sinus rhythm. Atrial fibrillation demonstrates a rapid ventricular response (160-170 bpm) when present. PG Care Time/CCT Total # of Minutes Spent Total Time Spent with Patient: Total time spent is greater than 50% in coordination of care (as documented) at patient's floor/unit and/or counseling patient: Coding Level of Care Code 76397 SUB INP/OBS CARE 50MIN Diagnoses Atrial fibrillation with rapid ventricular response I48.91 Nonrheumatic mitral valve regurgitation I34.0 Cardiac valve disease etiology: nonrheumatic Hyperlipidemia, unspecified hyperlipidemia type E78.5 Hyperlipidemia type: unspecified Chest pain, unspecified type R07.9 Chest pain type: unspecified (2) Mitral regurgitation Cardiac valve disease etiology: nonrheumatic Qualified Code(s): I34.0 - N onrheumatic mitral (valve) insufficiency (3) Hyperlipidemia Hyperlipidemia type: unspecified Qualified Code(s): E78.5 - Hyperlipidemia, unspecified (4) Chest pain Chest pain type: unspecified Qualified Code(s): R07.9 - Chest pain, unspecified
[2024-02-15] MEDS: AMIODARONE / D5W 360 MG/200 ML BAG IV SCH (16:14)
[2024-02-16 07:10] LABS: Basophils # (auto) 0.04 K/uL (0.00-0.20); Basophils % (auto) 0.7 %; Eosinophils # (auto) 0.23 K/uL (0.00-0.50); Eosinophils % (auto) 4.2 %; Hemoglobin 12.7 g/dl (12.0-16.0); Immature Granulocytes # (auto) 0.02 K/uL (0.01-0.20); Immature Granulocytes % (auto) 0.4 %; Lymphocytes # (auto) 1.76 K/uL (1.20-3.40); Lymphocytes % (auto) 32.3 %; Mean Corpuscular Hemoglobin 28.5 pg (25.0-34.0); Mean Corpuscular Hgb Conc 32.6 g/dL (32.0-36.0); Mean Corpuscular Volume 87.4 fL (80.0-100.0); Mean Platelet Volume 9.4 fL (9.4-12.4); Monocytes # (auto) 0.52 K/uL (0.11-0.59); Monocytes % (auto) 9.5 %; Neutrophils # (auto) 2.88 K/uL (1.40-6.50); Neutrophils % (auto) 52.9 %; Platelet Count 246 K/uL (130-400); RDW Coefficient of Variation 13.3 % (11.5-14.5); RDW Standard Deviation 42.5 fL (36.4-46.3); Red Blood Count 4.46 M/uL (4.20-5.40); White Blood Count 5.45 K/ul (4.8-10.8)
[2024-02-16 07:20] LABS: BUN Creatinine Ratio 22.1 (10-20); Calcium 8.7 mg/dl (8.6-10.3); Creatinine Clr Calc Pharmacy 59.8 ml/min; Est GFR (African American) 69.4 ml/min; Est GFR (Non-African American) 59.8 ml/min; Magnesium 2.2 mg/dl (1.7-2.4); Potassium 4.1 mmol/L (3.5-5.1)
--- NOTE | 2024-02-16 10:29 | Cardiology Progress Note ---
Date of Service February 16, 2024 Assessment & Plan (1) Atrial fibrillation with rapid ventricular response: Plan: -occasional episodes of sinus rhythm, currently in atrial fibrillation with rapid ventricular response. -would continue intravenous amiodarone for an additional 24 hours. -continue metoprolol. -continue Eliquis. (2) Mitral regurgitation: Plan: -mild in degree on current echocardiogram. (3) Hyperlipidemia: Plan: -on atorvastatin 10 mg q.h.s. at home. (4) Chest pain: Plan: -do not feel that this represents coronary ischemia as troponins are normal despite a rapid ventricular response. Admission and Anticipated Discharge Date Admission Date: February 13, 2024 Subjective The patient is standing at the bedside without complaints of chest pain, dyspnea, or palpitations. Her is also present. Physical Exam Physical Exam: In general this is a well-developed well-nourished white female in no acute distress. HEENT exam is negative. Neck is supple with full carotid upstrokes. There are no carotid bruits. Jugular venous pressure is flat at 90. There is no thyromegaly. Cardiovascular exam reveals an irregularly irregular rhythm with distant heart sounds. Lungs are clear without rales, rhonchi, or wheezes. Abdomen is soft and nontender without bruits. Extremities reveal intact radial artery and posterior tibial pulses bilaterally. There is no peripheral edema. Results & Data Vital Signs (Past 12 Hours) Vital Signs Temp Pulse Resp BP Pulse Ox O2 Del Method 02/16/24 07:43 36.4 C L 79 18 104/71 96 Room Air 02/16/24 03:23 36.7 C 77 18 106/73 93 Room Air 02/15/24 22:53 36.5 C 54 L 18 107/71 94 Room Air Diagnostic Findings monitor worker noted sinus rhythm for many hours yesterday. She is now in atrial fibrillation. Ventricular response elevates with physical activity. PG Care Time/CCT Total # of Minutes Spent Total Time Spent with Patient: Total time spent is greater than 50% in coordination of care (as documented) at patient's floor/unit and/or counseling patient: Coding Level of Care Code 86629 SUB INP/OBS CARE 3/50MIN Diagnoses Atrial fibrillation with rapid ventricular response I48.91 Nonrheumatic mitral valve regurgitation I34.0 Cardiac valve disease etiology: nonrheumatic Hyperlipidemia, unspecified hyperlipidemia type E78.5 Hyperlipidemia type: unspecified Chest pain, unspecified type R07.9 Chest pain type: unspecified (2) Mitral regurgitation Cardiac valve disease etiology: nonrheumatic Qualified Code(s): I34.0 - Nonrheumatic mitral (valve) insufficiency (3) Hyperlipidemia Hyperlipidemia type: unspecified Qualified Code(s): E78.5 - Hyperlipidemia, unspecified (4) Chest pain Chest pain type: unspecified Qualified Code(s): R07.9 - Chest pain, unspecified
--- NOTE | 2024-02-16 10:51 | Electrocardiogram Report ---
Test Reason : Blood Pressure : / mmHG Vent. Rate : 070 BPM Atrial Rate : 312 BPM P-R Int : 000 ms QRS Dur : 072 ms QT Int : 414 ms P-R-T Axes : 000 040 039 degrees QTc Int : 447 ms Atrial fibrillation Abnormal ECG When compared with ECG of 14-FEB-2024 18:49, Atrial fibrillation has replaced Sinus rhythm Confirmed by Neal Tolentino ([id number]) on 02/16/2024 10:51:06 AM Referred By: REFERRED SELF Confirmed By:Neal Tolentino
--- NOTE | 2024-02-16 11:25 | Hospitalist Progress Note ---
Date of Service February 16, 2024 Assessment & Plan (1) Atrial fibrillation with rapid ventricular response: Plan: new onset PM of 02/11 with chest pressure and chest pain radiating down the left arm. - trop neg, repeat confirms. - elevated ddimer - CTA: no PE, bibasilar opacities suggestive atelectasis versus scarring - Echo: no wall motion abnormalities, EF 60-65% - TSH WNL - Eliquis 5mg BID initiated - Consulted cardiology - with hypotension not allowing for AM doasge of metoprolol - Recommend hold cardizem (discontinued) - continue atorvastatin and Eliquis - increase metoprolol tartrate to 25mg BID - continue amiodarone drip for another 24 hours (2) Hyperlipidemia: Plan: Continue atorvastatin 10mg Lipid panel - LDL 47, HDL 60 Plan Dispo: continued inpatient stay, monitoring HR DVT proh: Derek updated at bedside. Admission and Anticipated Discharge Date Admission Date: February 13, 2024 Subjective Patient seen after ambulating in [place]. continues to feel well no symptoms with changing heart rhythm - no palpitations or SOB tolerating amiodarone - no side effects currently Tele SR until ~2300 02/14 then switching between afib and NSR, predominately fib rates 60-140s Review of Systems Review of Systems: All systems reviewed & are unremarkable except as noted in Subjective Physical Exam Physical Exam: General: NAD, VS as above Resp: normal respiratory effort, lungs clear to auscultation CV: irregular, no murmur, Extremities: Moves all extremities, no edema Neuro: A&O x3, Skin: intact, no lesions noted Results & Data Results & Data Vital Signs (Past 12 Hours) Vital Signs Temp Pulse Resp BP Pulse Ox O2 Del Method 02/16/24 11:19 36.6 C 67 18 106/75 97 Room Air 02/16/24 07:43 36.4 C L 79 18 104/71 96 Room Air 02/16/24 03:23 36.7 C 77 18 106/73 93 Room Air Laboratory Results CBC, chemistry and mag reviewed PG Care Time/CCT Total # of Minutes Spent Total Time Spent with Patient: Total time spent is greater than 50% in coordination of care (as documented) at patient's floor/unit and/or counseling patient: Coding Level of Care Code 98876 SUB INP/OBS CARE 3/50MIN Diagnoses Atrial fibrillation with rapid ventricular response I48.91 Hyperlipidemia, unspecified hyperlipidemia type E78.5 Hyperlipidemia type: unspecified (2) Hyperlipidemia Hyperlipidemia type: unspecified Qualified Code(s): E78.5 - Hyperlipidemia, unspecified
[2024-02-17 10:02] LABS: Hemoglobin 13.4 g/dl (12.0-16.0); Mean Corpuscular Hemoglobin 29.3 pg (25.0-34.0); Mean Corpuscular Hgb Conc 33.5 g/dL (32.0-36.0); Mean Corpuscular Volume 87.5 fL (80.0-100.0); Mean Platelet Volume 9.2 fL (9.4-12.4); Platelet Count 292 K/uL (130-400); RDW Coefficient of Variation 13.3 % (11.5-14.5); RDW Standard Deviation 42.5 fL (36.4-46.3); Red Blood Count 4.57 M/uL (4.20-5.40); White Blood Count 5.34 K/ul (4.8-10.8)
[2024-02-17 10:10] LABS: BUN Creatinine Ratio 20.2 (10-20); Calcium 9.2 mg/dl (8.6-10.3); Est GFR (African American) 70.2 ml/min; Est GFR (Non-African American) 60.6 ml/min; Magnesium 2.1 mg/dl (1.7-2.4)
--- NOTE | 2024-02-17 11:14 | Cardiology Progress Note ---
Date of Service February 17, 2024 Assessment & Plan (1) Atrial fibrillation with rapid ventricular response: Plan: -converted to sinus rhythm at 0 900. -would convert amiodarone to 200 mg p.o. b.i.d. -would discontinue metoprolol. -continue Eliquis 5 mg b.i.d. -follow-up in my office in 1-2 weeks. -may consider a consultation with Dr. Alston. (2) Mitral regurgitation: Plan: -mild in degree on current echocardiogram. (3) Hyperlipidemia: Plan: -continue atorvastatin 10 mg q.h.s. (4) Chest pain: Plan: -do not feel that this represents coronary ischemia as troponins are normal despite a rapid ventricular response. Admission and Anticipated Discharge Date Admission Date: February 13, 2024 Subjective The patient is resting comfortably in bed without complaints of chest pain, dyspnea, or palpitations. She did feel faint at the time of her 5 second conversion pause. Physical Exam Physical Exam: In general this is a well-developed well-nourished white female in no acute di stress. HEENT exam is negative. Neck is supple with full carotid upstrokes. There are no carotid bruits. Jugular venous pressure is flat at 90. There is no thyromegaly. Cardiovascular exam reveals a regular rhythm with distant heart sounds. Lungs are clear without rales, rhonchi, or wheezes. Abdomen is soft and nontender without bruits. Extremities reveal intact radial artery and posterior tibial pulses bilaterally. There is no peripheral edema. Results & Data Vital Signs (Past 12 Hours) Vital Signs Temp Pulse Resp BP Pulse Ox O2 Del Method 02/17/24 08:20 36.4 C L 82 17 108/65 96 Room Air 02/17/24 02:59 36.6 C 63 18 105/69 95 Room Air Diagnostic Findings cardiac monitor technician noted conversion to sinus rhythm at approximately 9:00 a.m.. There was a 5 second conversion pause. PG Care Time/CCT Total # of Minutes Spent Total Time Spent with Patient: Total time spent is greater than 50% in coordination of care (as documented) at patient's floor/unit and/or counseling patient: Coding Level of Care Code 99524 SUB INP/OBS CARE 3/50MIN Diagnoses Atrial fibrillation with rapid ventricular response I48.91 Nonrheumatic mitral valve regurgitation I34.0 Cardiac valve disease etiology: nonrheumatic Hyperlipidemia, unspecified hyperlipidemia type E78.5 Hyperlipidemia type: unspecified Chest pain, unspecified type R07.9 Chest pain type: unspecified (2) Mitral regurgitation Cardiac valve disease etiology: nonrheumatic Qualified Code(s): I34.0 - Nonrheumatic mitral (valve) insufficiency (3) Hyperlipidemia Hyperlipidemia type: unspecified Qualified Code(s): E78.5 - Hyperlipidemia, unspecified (4) Chest pain Chest pain type: unspecified Qualified Code(s): R07.9 - Chest pain, unspecified
--- NOTE | 2024-02-17 11:21 | Discharge Summary ---
Date of Service February 17, 2024 Admission HPI Per Admitting Provider Ms. Murdock is a 73F with a PMH of hyperlipemia who presents to the ED with chest pain and SOB since 10pm last night. She took two tylenol that allowed her to sleep for alittle bit and woke up around 430 with worsening pain that radiated down to the arm that prompted her to come to the ER. Was in her usual state of health until last night. Does report family hx of afib but has never been told she had this before. Shoulder pain has improved, reports chest pain is still 5/10 with deep breathing, but otherwise no pain. Admission Exam Per Admitting Provider General: NAD, VS as above Resp: normal respiratory effort, lungs clear to auscultation CV: irregular, rates 100s, no murmur, Abd: normal bowel sounds, non tender, no hepatosplenomegaly Extremities: Moves all extremities, no edema Neuro: A&O x3, Skin: intact, no lesions noted Principal Diagnosis Atrial fibrillation with RVR Discharge Exam General: No acute distress, nondiaphoretic, well-developed, well-nourished. Skin: The skin was without rashes, erythema, edema, or bruising. Cardiac: Regular rate and rhythm without murmurs gallops or rubs. Pulm: Clear to auscultation bilaterally without wheezes, rales or rhonchi. No retractions or accessory muscle use. Abdominal: Positive bowel sounds x 4. Soft, nontender, without masses or organomegaly. No guarding or rebound tenderness. Neuro: A&O x3. No focal neurological deficits. Discharge Data Allergies Allergy/AdvReac Type Severity Reaction Status Date / Time aspirin Allergy Intermediate Hives Verified 11/06/22 17:00 bee venom protein (honey bee) Allergy Intermediate Hives Verified 11/06/22 17:00 orange Allergy Intermediate Hives Verified 11/06/22 17:00 Egg Derived AdvReac Intermediate NAUSEA/GAS/ Verified 11/06/22 17:00 BLOATING Consultations 02/13/24 08:50 ED Decision to Admit Stat 02/14/24 09:18 Consult Cardiology Routine Ordered Studies 02/13/24 07:45 CT angio chest PE protocol Stat Hospital Course (1) Atrial fibrillation with rapid ventricular response: New onset A-fib with RVR in the evening of 02/11, with chest pressure and chest pain radiating down the left arm. - ACS workup negative: Repeat troponins negative, negative CTA for PE, echo revealed no wall motion abnormalities and EF 60-65%, TSH within normal limits. - Eliquis 5 mg twice daily initiated. - Patient converted back to normal sinus rhythm after amiodarone drip. - Discharged on Eliquis 5 mg p.o. twice daily and amiodarone 200 mg p.o. twice daily. - Follow-up with cardiology 1 week after discharge. (2) Hyperlipidemia: Continue atorvastatin 10mg Lipid panel 02/14/24 - LDL 47, HDL 60 Plan CODE STATUS: Full code Total Time Total Time Spent Total Time Spent (In Minutes): Greater than 30 minutes spent completing this discharge process including direct patient care, medication reconciliation, documentation, review of labs and images, and coordination of care. Discharge Plan Discharge Items Patient Disposition: Home - Self-Care Reason For Visit: CHEST PAIN INTO LEFT ARM,SOB,HEADACHE Discharge Diagnosis: Atrial fibrilation Activity: Resume your previous activity Weightbearing: Full weightbearing Non-emergency contact: Primary Care Provider and Curriculum And Instruction Director Call non-emergency contact if: you have any medication questions, your symptoms worsen and your pain is worsening Follow-up/Referrals: Neal Tolentino MD [Physician] - Karolyn Williamson MD [Primary Care Provider] - Diet: Heart Healthy Addtl Attending Provider Instructions: Nile Shah were admitted to the hospital because of atrial fibrillation with rapid ventricular response (A-fib with RVR). Atrial fibrillation is a condition in which the heart beats in an irregular pattern. It is the most common abnormal heart rhythm. It is caused by a problem in the heart electrical pathways within the muscle of the upper chambers of the heart (atria). Because the atria are not agnes normally, blood may pool in the atria instead of moving into the ventricles (the lower chambers of the heart). This can increase the risk for blood clots and stroke. Heart palpitations are a common symptom of atrial fibrillation. This is the feeling that your heart is fluttering, or beating too fast, hard, or irregular. When the heart beats too fast, it does not pump blood very well. This can cause other symptoms, such as anxiety, fatigue, shortness of breath, chest pain, dizziness, or fainting. Upon discharge from the hospital: * Abe amiodarone 200 mg by mouth twice daily. This is an antiarrhythmic that helps your heart stay in a normal rhythm. * Take Eliquis 5 mg by mouth twice daily. This is a blood thinner that reduces the risk of blood clots or stroke. I have provided you with a coupon for 1 month free Eliquis. You can give this to the pharmacy when you go to scrap pick[facility] your prescriptions. I have sent both of these prescriptions to the [facility] in [place]. * Continue taking your atorvastatin as prescribed. * Follow-up with Dr. Tolentino in cardiology next week. Their office will call you sometime this week with your appointment date and time. Please call your healthcare provider if you have any of these: Swelling in either leg, feeling lightheaded, faint, or dizzy. Please return to the hospital if any of these occur: Shortness of breath or trouble breathing, passing out, uncontrolled bleeding, heartbeat that is irregular/very fast or slow compared with your normal heartbeat, chest pain or pressure, extreme drowsiness or confusion, numbness or weakness in your arms, legs, or face, or trouble speaking or seeing. It was a pleasure taking care of you while you were in the hospital, Светлана Schwab PA-C Addtl Assistant Auditor Provider Instructions: Here are some guidelines about taking Eliquis: Increased risk of blood clots if you stop taking Eliquis. Do not stop taking Eliquis without talking to your doctor.. Stopping Eliquis increases your risk of having a stroke. Increased risk of bleeding. Eliquis can cause bleeding which can be serious and may lead to . This is because Eliquis is a blood thinner medicine (anticoagulant) that lowers blood clotting. During treatment with Eliquis you are likely to bruise more easily, and it may take longer for bleeding to stop. * If you ever cannot get bleeding to stop please report to the ER * If you have a bruise that is large/painful or swollen you should also be seen by a medical provider Call your doctor or get medical help right away if you or your child develop any of these signs or symptoms of bleeding: unexpected bleeding or bleeding that lasts a long time, such as: * nose bleeds that happen often * unusual bleeding from the gums * bleeding that is severe or you cannot control * red, pink or brown urine * bright red or black stools (looks like tar) * cough up blood or blood clots * vomit blood or your vomit looks like coffee grounds If you have a fall and hit your head, please come to the ER and get checked out. Being on a blood thinner increases your risk of brain bleeding with falls. Avoid high risk activities, such as: * standing on tall ladders * riding motorcycles * anything where you are high risk for falls or trauma Avoid taking NSAIDs (pain medication) while you are taking a blood thinner. This includes: * Ibuprofen, Aleve Advil, Naproxen. * If you are ever unsure you can ask your doctor or pharmacist. * Tylenol is SAFE to take. If you have any new or worsening chest pain or shortness of breath please return to the ER. Pending Studies at Discharge: No Stand-Alone Forms: My [facility] [place] [email or web address], Smoking Cessation Medications and DC Order Prescriptions: New Eliquis 5 mg Tablet 5 mg PO BID 30 Days Qty: 60 0RF amiodarone 200 mg tablet 200 mg PO BID Qty: 60 0RF Continued multivitamin Tablet 1 tab PO HS Rx Instructions: OTC unable to verify with pharmacy 02/13/24 atorvastatin 10 mg tablet 10 mg PO HS calcium carbonate [Calcium 600] 600 mg calcium (1,500 mg) Tablet 600 mg PO HS Rx Instructions: OTC unable to verify with pharmacy 02/13/24 ascorbic acid (vitamin C) [Vitamin C] 500 mg Tablet,Chewable 500 mg PO HS Rx Instructions: OTC unable to verify with pharmacy 02/13/24 docusate sodium [Stool Softener] 100 mg Capsule 100 mg PO HS Rx Instructions: OTC unable to verify with pharmacy 02/13/24 cholecalciferol (vitamin D3) [Vitamin D3] 25 mcg (1,000 unit) Capsule 0 mcg PO HS Rx Instructions: OTC unable to verify with pharmacy 02/13/24 PT UNSURE OF STRENGTH Discharge Orders: Discharge Order (Routine); Ordered 02/17/24 Ordered By: Светлана Perez/Other Patient Handouts: AFib Admission Data Admit Date/Time: 02/13/24 10:05 Attending Provider: Chirag Carey Admit Provider: Liliya Mcdonnell Primary Care Provider: Karolyn Williamson Other Providers: Partha Ocasio; Neal Tolentino Coding Level of Care Code 74216 INP/OBS DISCH >30 MIN Diagnoses Atrial fibrillation with rapid ventricular response I48.91 Hyperlipidemia, unspecified hyperlipidemia type E78.5 Hyperlipidemia type: unspecified
== END 2024-02-17 14:04 | disposition home or self-care (01) | DRG 309 ==
LOC: SUATTDRO → ED 06:20 → SUATTDRO 10:05 → 2S 10:05